=== PATIENT | female | born 1985 | race Caucasian/White ===

== ENCOUNTER 2017-01-01 16:12 | Emergency (ER) | payer BC, OTHER ==
[~2017-01-01] VITALS: Ht 162.6 cm; Wt 90.0 kg
[~2017-01-01 16:12] MED LIST: ALBU2.5I INH; BACT800T5 PO; DUONI NEB; PRED20 PO
[2017-01-01 16:16] VITALS: BP 104/71; PULSE 78; RESP 16; TEMP 98.3; O2SAT 98
--- NOTE | 2017-01-01 16:41 | PD ---
HPI Chief Complaint: ENT Complaint Time Seen by Provider: 16:41 Travel History International Travel<30 days: No Contact w/Intl Traveler<30days: No Traveled to known affect area: No History of Present Illness HPI 31-year-old female with history of seasonal allergies, nasal polyps, s/p polypectomy, asthma presents to the ED for evaluation of 3 day history of sharp throat pain, dulled hearing, facial pain, sinus congestion. She denies fever, chills, headache, dizziness, cough, shortness of breath, abdominal pain, nausea or vomiting. She's endorses sick contacts, states that her son just had a sinus infection and was prescribed antibiotics. The patient states that her allergies have been particularly bad this year. She states she treats with a daily second-generation antihistamine, daily Neti pot treatments but no improvement of symptoms. PFSH Past Medical History Arthritis: No Asthma: Yes Autoimmune Disease: No Blood Disorders: No Anxiety: Yes Depression: Yes Heart Rhythm Problems: No Cancer: No Cardiovascular Problems: Yes High Cholesterol: No Chemotherapy: No Chest Pain: No Congestive Heart Failure: No COPD: No Cerebrovascular Accident: No Diabetes: No Diminished Hearing: No Endocrine: No Gastrointestinal Disorders: Yes GERD: No Glaucoma: No Genitourinary: Yes Headaches: Yes Hepatitis: No Hiatal Hernia: No Hypertension: No Immune Disorder: No Kidney Stones: No Musculoskeletal: Yes (HX OF LOW BACK PAIN.) Neurologic: Yes (ANXIETY) Psychiatric: Yes Reproductive: No Respiratory: Yes (asthma) Immunizations Current: Yes Migraines: No Myocardial Infarction: No Radiation Therapy: No Renal Failure: No Seizures: No Sickle Cell Disease: No Sleep Apnea: No Thyroid Disease: No Ulcer: No Influenza Vaccination: No ?: Not LMP: "NOW" : 4 Para: 1 Miscarriage: 1 : 2 Past Surgical History Abdominal Surgery: No AICD: No Appendectomy: No Arteriovenous Shunt: No Cardiac Surgery: No Cholecystectomy: No Ear Surgery: No Endocrine Surgery: No Eye Surgery: No Genitourinary Surgery: No Gynecologic Surgery: No Insulin Pump: No Joint Replacement: No Oral Surgery: No Pacemaker: No Thoracic Surgery: No Other Surgery: Yes (nasal polyps removed) Social History Alcohol Use: Yes (OCCASIONALLY) Tobacco Use: No Substance Use: No Allergies-Medications (Allergen,Severity, Reaction): Coded Allergies: Amoxicillin (Verified Allergy, Severe, THROAT SWELLING AND RASH, 01/01/17) Penicillin (Verified Allergy, Severe, "RASH AND THROAT SWELLING", 01/01/17) Reported Meds & Prescriptions Reported Meds & Active Scripts Active Magic Mouthwash Adult Liq (Multi-Ingredient Mouthwash/Gargle) 120 Ml Susp 10 Ml SWISH-SWAL ACHS Each 5mL contains: Nystatin 200,000units, Diphenhydramine 4.25mg, Viscous Lidocaine 10mg, Dooley syrup 0.8 mL Doxycycline Hyclate 100 Mg Cap 100 Mg PO BID Review of Systems Except as stated in HPI: all other systems reviewed are Neg Physical Exam Narrative GENERAL: Well-nourished, well-developed white female in no acute distress. SKIN: Warm and dry. Dark circles under the eyes. HEAD: Normocephalic. Atraumatic. Tender to palpation of the facial sinuses. EYES: No scleral icterus. No injection or drainage. PERRLA. EOMI. ENT: Pearly graf tympanic membranes bilaterally. Nasal mucosa is moist, mildly erythematous. Oropharynx with mild posterior erythema. No erythema, edema or exudate. Uvula midline. Airway patent. NECK: Supple, trachea midline. No JVD or lymphadenopathy. CARDIOVASCULAR: Regular rate and rhythm without murmurs, gallops, or rubs. No carotid bruits. 2+ DP and radial pulses bilaterally. RESPIRATORY: Breath sounds clear and equal bilaterally. No accessory muscle use. GASTROINTESTINAL: Abdomen soft, non-tender, nondistended. + Bowel sounds MUSCULOSKELETAL: No cyanosis, or edema. Patient is ambulatory and moves extremities spontaneously. BACK: Nontender without obvious deformity. No CVA tenderness. Data Data Last Documented VS Vital Signs Date Time Temp Pulse Resp B/P Pulse Ox O2 Delivery O2 Flow Rate FiO2 01/01/17 16:16 98.3 78 16 104/71 98 Orders Group A Rapid Strep Screen (01/01/17 16:37) Strep Culture (Group A) (01/01/17 16:55) Doxycycline (Vibramycin) (01/01/17 17:45) MDM Medical Decision Making Medical Screen Exam Complete: Yes Emergency Medical Condition: Yes Differential Diagnosis Allergic rhinitis versus sinusitis versus viral syndrome versus pharyngitis versus strep pharyngitis versus other Narrative Course 31-year-old female with history of seasonal allergies, nasal polyps, s/p polypectomy, asthma presents to the ED for evaluation of 3 day history of sharp throat pain, dulled hearing, facial pain, sinus congestion. She denies fever, chills, headache, dizziness, cough, shortness of breath, abdominal pain, nausea or vomiting. She's endorses sick contacts, states that her son just had a sinus infection and was prescribed antibiotics. The patient states that her allergies have been particularly bad this year. She states she treats with a daily second-generation antihistamine, daily Neti pot treatments but no improvement of symptoms. Vitals reviewed. Physical exam reveals a nontoxic- appearing white female in no acute distress. There are darts circles under her eyes, tenderness to palpation of the facial sinuses. There is mild posterior oropharyngeal erythema. The physical exam is otherwise unremarkable. Rapid strep swab negative. We'll treat for sinusitis. Patient was prescribed doxycycline 100 mg twice a day 7 days. First dose administered in the ED. She was also provided a prescription for magic mouthwash as needed for pharyngitis. She is instructed to take all medication as prescribed, follow up with her primary care or ENT provider. She indicated understanding of the instructions and is agreeable to the care plan. Patient is stable and discharged home. Diagnosis Primary Impression: Acute sinusitis Qualified Code: J01.90 - Acute sinusitis, recurrence not specified, unspecified location Additional Impression: Pharyngitis Qualified Code: J02.9 - Pharyngitis, unspecified etiology Referrals: Ear / Nose / Throat Specialist Patient Instructions: General Instructions, Pharyngitis (ED), Sinusitis (ED) Additional Instructions: Rest, hydrate. Physical antibiotics as prescribed, even his symptoms resolved. Continue with your at home medication and treatment regimen. Magic mouthwash gargle for 15-30 seconds and spit as needed for pain. Follow-up with your ENT. Return to the ED for any urgent or emergent medical condition. Med/Other Pt SpecificInfo: Prescription(s) given Scripts Jdpiaoyi-Upymrrwopkbkxhd-Ucpbfqugi Liq (Magic Mouthwash Adult Liq)120 Ml Susp10 Ml SWISH-SWAL ACHS #120 ML Ref 0 Each 5mL contains: Nystatin 200,000units, Diphenhydramine 4.25mg, Viscous Lidocaine 10mg, Dooley syrup 0.8 mL Prov:Joselo Sutton MD 01/01/17 Doxycycline Hyclate 100 Mg [id number] Mg PO BID #14 CAP Ref 0 Prov:Joselo Sutton MD 01/01/17 Disposition: 01 DISCHARGE HOME Condition: Stable Marichuy Tejada Jan 01, 2017 16:41
[2017-01-01] MEDS ORDERED: DOXY100C PO (17:31)
[2017-01-01] MEDS ORDERED: MAGICADU2 SWISH-SWAL (17:31)
[2017-01-01] MEDS ORDERED: DOXYCYCLINE HYCLATE 100 MG CAP PO ONE (17:45)
== END 2017-01-01 17:44 | disposition home or self-care (01) ==
LOC: PHEFT 16:12
DX: J01.90 Acute sinusitis, unspecified (principal); J02.9 Acute pharyngitis, unspecified; J45.909 Unspecified asthma, uncomplicated; R51 Headache
CPT/HCPCS: 87081; 87880; 99283

== ENCOUNTER 2017-06-19 17:30 | Emergency (ER) | payer BC, OTHER ==
[~2017-06-19] VITALS: Ht 160 cm; Wt 85.3 kg
[~2017-06-19 17:30] MED LIST changes: -ALBU2.5I INH; -BACT800T5 PO; +DOXY100C PO; -DUONI NEB; +MAGICADU2 SWISH-SWAL; -PRED20 PO
[2017-06-19 18:20] VITALS: BP 132/73; PULSE 92; RESP 18; TEMP 99; O2SAT 99
[2017-06-19] MEDS ORDERED: FEXO1TAB97 PO (18:21)
[2017-06-19] MEDS ORDERED: ALBUAER3 INH (18:21)
[2017-06-19] MEDS ORDERED: DOXY100T PO (19:05)
--- NOTE | 2017-06-19 19:05 | PD ---
HPI Chief Complaint: Cold / Flu Symptoms Time Seen by Provider: 18:38 Travel History International Travel<30 days: No Contact w/Intl Traveler<30days: No Traveled to known affect area: No History of Present Illness HPI 31-year-old female presents to the emergency room for evaluation of sinus headache and pressure for the past 2 days. Patient states her son started with the same symptoms one week ago. States she feels sick and knows that she has a sinus infection that will only get better with antibiotics. She has been taking rpib-vjr-xmkaouq medications without any relief in symptoms. She denies earache, sore throat, cough, or significant congestion. She reports history of asthma and has needed to use her inhalers more than normal lately. PFSH Past Medical History Arthritis: No Asthma: Yes Autoimmune Disease: No Blood Disorders: No Anxiety: Yes Depression: Yes Heart Rhythm Problems: No Cancer: No Cardiovascular Problems: Yes High Cholesterol: No Chemotherapy: No Chest Pain: No Congestive Heart Failure: No COPD: No Cerebrovascular Accident: No Diabetes: No Diminished Hearing: No Endocrine: No Gastrointestinal Disorders: Yes GERD: No Glaucoma: No Genitourinary: Yes Headaches: Yes Hepatitis: No Hiatal Hernia: No Hypertension: No Immune Disorder: No Kidney Stones: No Musculoskeletal: Yes (HX OF LOW BACK PAIN.) Neurologic: Yes (ANXIETY) Psychiatric: Yes Reproductive: No Respiratory: Yes (asthma) Immunizations Current: Yes Migraines: No Myocardial Infarction: No Radiation Therapy: No Renal Failure: No Seizures: No Sickle Cell Disease: No Sleep Apnea: No Thyroid Disease: No Ulcer: No Tetanus Vaccination: > 5 Years Influenza Vaccination: No ?: Not LMP: Now : 4 Para: 1 Miscarriage: 1 : 2 Past Surgical History Abdominal Surgery: No AICD: No Appendectomy: No Arteriovenous Shunt: No Cardiac Surgery: No Cholecystectomy: No Ear Surgery: No Endocrine Surgery: No Eye Surgery: No Genitourinary Surgery: No Gynecologic Surgery: No Insulin Pump: No Joint Replacement: No Oral Surgery: No Pacemaker: No Thoracic Surgery: No Other Surgery: Yes (nasal polyps removed) Social History Alcohol Use: Yes (OCCASIONALLY) Tobacco Use: No Substance Use: No Allergies-Medications (Allergen,Severity, Reaction): Coded Allergies: amoxicillin (Unverified Allergy, Severe, THROAT SWELLING AND RASH, 06/19/17 ) penicillin G (Unverified Allergy, Severe, "RASH AND THROAT SWELLING", 06/19) Reported Meds & Prescriptions Reported Meds & Active Scripts Active Reported Myrna-D 24 Hour Allergy (Fexofenadine-Pseudoephedrine ER 24 HR) 180-240 Oanh 1 Tab PO DAILY Proair Hfa 8.5 GM Inh (Albuterol Sulfate) 90 Mcg/Act Aer 2 Puff INH Q4-6H PRN 108 mcg/actuation Review of Systems Except as stated in HPI: all other systems reviewed are Neg Physical Exam Narrative GENERAL: Well-nourished, well-developed female in no acute distress. Afebrile. Ambulatory. SKIN: Focused skin assessment warm/dry. HEAD: Normocephalic. Mild tenderness to palpation of the frontal sinuses. Pain worse with leaning forward. EYES: No scleral icterus. No injection or drainage. ENT: Mucosa pink and moist. Mild erythema without exudates. No uvular edema. No uvular, palatal, or tonsillar deviation. Airway patent. Nasal turbinates appear normal without nasal blood, purulent drainage or septal hematoma. EARS: Bilateral pinnae and external canals appear within normal limits. Bilateral tympanic membranes without erythema, dullness or perforation. NECK: Supple, trachea midline. No JVD or lymphadenopathy. CARDIOVASCULAR: Regular rate and rhythm without murmurs, gallops, or rubs. RESPIRATORY: Breath sounds equal bilaterally. No accessory muscle use. No crackles, rales, wheezes, or rhonchi. Data Data Last Documented VS Vital Signs Date Time Temp Pulse Resp B/P (MAP) Pulse Ox O2 Delivery O2 Flow Rate FiO2 06/19/17 18:20 18 99 Room Air 06/19/17 18:20 99.0 92 132/73 (92) MDM Medical Decision Making Medical Screen Exam Complete: Yes Emergency Medical Condition: Yes Medical Record Reviewed: Yes Differential Diagnosis Chronic sinusitis, acute sinusitis, upper respiratory infection, pharyngitis, bronchitis Narrative Course 31-year-old female with history of chronic sinusitis presents to the emergency room for evaluation of the same. Symptoms started 2 days ago. Her son has similar symptoms that started 6 days ago. She is afebrile and well-appearing in the emergency room. Nontoxic looking. Physical exam is unremarkable. There is no evidence of bacterial infection in the ears, throat, sinuses, or. Vital signs stable. Patient was informed that she likely has a viral upper respiratory infection that will get better on its own within 2 weeks. She was told there are no indications for antibiotics. Patient was insistent on antibiotics stating the only thing that makes her feel better. She has been on antibiotics multiple times in the past several years for similar upper respiratory symptoms. Patient was educated on the concern for resistance and indications for antibiotics. She will be discharged with prescription for doxycycline and told only to start if she develops fever, worsening symptoms, or symptoms do not improve after 10 days. She is reluctant but understands and agrees to plan. Diagnosis Primary Impression: Chronic sinusitis Qualified Codes: J32.0 - Chronic maxillary sinusitis Referrals: Primary Care Physician Additional Instructions: Rest and drink plenty of fluids. This is likely viral and will not improve with antibiotics. If symptoms persist for greater than 7 days or you develop fevers, take doxycycline as directed, until gone. Take ibuprofen with food as directed, as needed for pain. Follow-up with ENT about frequent sinus infections. Return to the emergency room for worsening symptoms. Med/Other Pt SpecificInfo: Prescription(s) given Scripts Doxycycline Hyclate (Doxycycline Hyclate) 100 Mg Tab 100 MG PO BID for 7 Days, #14 TAB Prov: Jeramy Jones MD 06/19/17 Disposition: 01 DISCHARGE HOME Condition: Stable Genesis Jones Jun 19, 2017 19:05
== END 2017-06-19 19:33 | disposition home or self-care (01) ==
LOC: PHEFT 17:30
DX: J32.0 Chronic maxillary sinusitis (principal)
CPT/HCPCS: 99283